=== PATIENT | male | born 1950 | race American Indian/Alaskan Native ===

== ENCOUNTER 2021-04-25 09:05 | Emergency (ER) | payer MEDICARE, OTHER ==
[2021-04-25] MEDS ORDERED: SODIUM CHLORIDE 0.9% 1000 ML 1,000 ML IV ONE ×3 (10:05→10:56)
[2021-04-25 10:28] LABS: Basophils % (Auto) 0.6 % (0.0-1.8); Eosinophils # (Auto) 0.1 K/mm3 (0.0-0.4); Eosinophils % (Auto) 1.4 % (0.0-4.3); Hemoglobin 15.5 gm/dl (11.8-15.2); Lymphocytes # (Auto) 1.4 K/mm3 (1.2-5.4); Lymphocytes % (Auto) 25.4 % (13.4-35.0); Mean Corpuscular HGB Conc 35 % (32-34); Mean Corpuscular Volume 89 fl (84-94); Monocytes # (Auto) 0.4 K/mm3 (0.0-0.8); Monocytes % (Auto) 8.1 % (0.0-7.3); Platelet Count 285 K/mm3 (140-440); Red Blood Count 5.09 M/mm3 (3.65-5.03); Red Cell Distribution Width 12.5 % (13.2-15.2)
--- NOTE | 2021-04-25 10:41 | Emergency Department Report ---
ED General Adult HPI - General Chief complaint: Dizziness Stated complaint: TIRED/DIZZY/WEIGHTLOSS/SINUS PROBLEMS Time Seen by Provider: 04/25/21 09:55 Source: patient Mode of arrival: Ambulatory Limitations: No Limitations - History of Present Illness Initial comments: Patient is a 70-year-old F Turk[place] male with no known medical problems except for arthritis who states that for the last month and a half he has been not sleeping very well but feels very fatigued throughout the day. He states he is having some increased urination throughout the night as well. Patient reports approximate 30 pound weight loss over the last 3 months. Denies any nausea vomiting diarrhea abdominal pain cough cold congestion fevers or chills. Patient states he does work in his yard almost daily is not been able to perform his daily activities well. Patient is seen his primary care physician approximately a week and a half ago and they are in the process of checking some things however the patient states that he was so fatigued this morning that he want to come to the emergency department to make sure he was okay. - Related Data Previous Rx's Medication Instructions Recorded Last Taken Type glipiZIDE [Glucotrol] 10 mg PO QDAY #30 tablet 04/25/21 Unknown Rx Allergies Allergy/AdvReac Type Severity Reaction Status Date / Time No Known Allergies Allergy Unverified 04/25/21 09:21 ED Review of Systems ROS: Stated complaint: TIRED/DIZZY/WEIGHTLOSS/SINUS PROBLEMS Other details as noted in HPI Comment: All other systems reviewed and negative ED Past Medical Hx - Past Medical History Hx Hypertension: Yes - Surgical History Past Surgical History?: No - Social History Smoking Status: Current Every Day Smoker Substance Use Type: Alcohol - Medications Home Medications: Home Medications Medication Instructions Recorded Confirmed Last Taken Type glipiZIDE [Glucotrol] 10 mg PO QDAY #30 tablet 04/25/21 Unknown Rx ED Physical Exam - General Limitations: No Limitations General appearance: alert, in no apparent distress - Head Head exam: Present: atraumatic, normocephalic - Eye Eye exam: Present: normal appearance, PERRL, EOMI - ENT ENT exam: Present: mucous membranes moist - Neck Neck exam: Present: normal inspection - Respiratory Respiratory exam: Present: normal lung sounds bilaterally. Absent: respiratory distress, wheezes, rales, rhonchi - Cardiovascular Cardiovascular Exam: Present: normal rhythm, tachycardia, normal heart sounds. Absent: systolic murmur, diastolic murmur, rubs, gallop - GI/Abdominal GI/Abdominal exam: Present: soft, normal bowel sounds. Absent: distended, tenderness, guarding - Rectal Rectal exam: Present: deferred - Extremities Exam Extremities exam: Present: normal inspection - Back Exam Back exam: Present: normal inspection - Neurological Exam Neurological exam: Present: alert, oriented X3 - Psychiatric Psychiatric exam: Present: normal affect, normal mood - Skin Skin exam: Present: warm, dry, intact, normal color. Absent: rash ED Course Vital Signs 04/25/21 04/25/21 04/25/21 09:21 09:49 09:59 Temperature 97.1 F L Pulse Rate 133 H 111 H Respiratory 20 20 16 Rate Blood Pressure 134/113 O2 Sat by Pulse 100 Oximetry 04/25/21 04/25/21 04/25/21 10:00 10:16 10:30 Temperature Pulse Rate Respiratory 22 19 22 Rate Blood Pressure 153/94 153/94 153/94 O2 Sat by Pulse 99 100 Oximetry 04/25/21 04/25/21 04/25/21 10:46 11:04 11:16 Temperature Pulse Rate 103 H 99 H 104 H Respiratory 22 25 H 17 Rate Blood Pressure 149/103 139/106 O2 Sat by Pulse 99 100 97 Oximetry 04/25/21 04/25/21 04/25/21 11:30 11:46 12:00 Temperature Pulse Rate 100 H 100 H 100 H Respiratory 25 H 20 20 Rate Blood Pressure 139/106 139/106 143/95 O2 Sat by Pulse 100 100 99 Oximetry 04/25/21 04/25/21 04/25/21 12:16 12:30 12:46 Temperature Pulse Rate 95 H 89 86 Respiratory 23 21 22 Rate Blood Pressure 143/95 158/95 158/95 O2 Sat by Pulse 99 100 100 Oximetry 04/25/21 04/25/21 04/25/21 13:00 13:16 13:30 Temperature Pulse Rate 85 88 88 Respiratory 20 21 22 Rate Blood Pressure 143/92 143/92 133/82 O2 Sat by Pulse 100 100 99 Oximetry 04/25/21 13:46 Temperature Pulse Rate 88 Respiratory 22 Rate Blood Pressure 133/82 O2 Sat by Pulse 99 Oximetry - Reevaluation(s) Reevaluation #1: 04/25/21 14:59 Patient is not in DKA. Was hydrated and his blood glucose is down to the 200s at the time of discharge. Patient be restarted on glipizide and follow up with his primary care physicians. Patient discharged in stable condition. ED Medical Decision Making - Lab Data Result diagrams: 04/25/21 10:11 04/25/21 10:11 - EKG Data -: EKG Interpreted by Me EKG shows normal: sinus rhythm, axis, intervals, QRS complexes, ST-T waves Rate: tachycardia (114) Critical care attestation.: If time is entered above; I have spent that time in minutes in the direct care of this critically ill patient, excluding procedure time. ED Disposition Clinical Impression: Hyperglycemia, Fatigue, Dehydration Disposition: DC-01 TO HOME OR SELFCARE Is pt being admited?: No Does the pt Need Aspirin: No Condition: Stable Instructions: Preventing Type 2 Diabetes Mellitus, Dehydration, Adult, [id number] Prescriptions: glipiZIDE [Glucotrol] 10 mg PO QDAY #30 tablet Referrals: MEENAKSHI ZARATE MD [Primary Care Provider] - 3-5 Days Time of Disposition: 15:03
[2021-04-25 10:42] LABS: Bilirubin,Urine NEG (Negative); Blood,Urine NEG (Negative); Color,Urine Yellow (Yellow); Mucus,Urine FEW /HPF; RBC,Urine < 1.0 /HPF (0.0-6.0); Urobilinogen,Urine < 2.0 mg/dL (<2.0)
[2021-04-25 10:45] LABS: Albumin 4.3 g/dL (3.9-5); Calcium 10.5 mg/dL (8.4-10.2)
[2021-04-25] MEDS ORDERED: INSULIN REGULAR, HUMAN 100 UNITS/1 ML IV ONE (10:56)
[2021-04-25 13:55] VITALS: BP 133/82
--- NOTE | 2021-04-26 14:29 | Electrocardiograph Report ---
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
== END 2021-04-25 16:00 | disposition home or self-care (01) ==
LOC: ED 09:05
DX: R73.9 Hyperglycemia, unspecified (principal); E86.0 Dehydration; R53.83 Other fatigue; I10 Essential (primary) hypertension; F17.200 Nicotine dependence, unspecified, uncomplicated; Z72.89 Other problems related to lifestyle; Z79.899 Other long term (current) drug therapy
CPT/HCPCS: 36415; 80053; 81001; 82805; 82962; 84443; 85025; 93005; 96361; 96374; 99284; J7030; J1815